=== PATIENT | female | born 1980 | race Caucasian/White ===

== ENCOUNTER 2022-01-26 07:08 | Day surgery (SDC) | payer OTHER ==
[2022-01-26] VITALS (7 sets, daily range): BP systolic 91–133; BP diastolic 45–75
[~2022-01-26] VITALS: Ht 154.9 cm; Wt 70.0 kg
--- NOTE | 2022-01-26 06:40 | NUR ---
Patient arrived to the ANR suite, identification and demographics confirmed. Patient to room 10, AAO, ambulatory, vitals obtained, ID/allergy/fall bands placed, changed into hospital gown, KASSANDRA hose, and non-slip socks. Procedure and timeline explained for treatment and discharge. All questions answered and the patient presents no concerns at this time.
--- NOTE | 2022-01-26 07:22 | NUR ---
Dr. Arauz telephoned with patient intake information including usage, dose, last dose/time taken and initial vital signs. Patient history and allergies reviewed with MD. Orders received for 10 mg PO Valium and 0.1 mg PO Clonidine now. Will reassess per protocol in 1.5 hours and update MD with assessment and vitals.
[2022-01-26 07:41] LABS: HEMATOCRIT 37.8 % (37.0-47.0); HEMOGLOBIN 12.5 g/dl (12.0-16.0); IMMATURE GRANULOCYTES 0.2 % (0.0-5.0); MEAN CELL VOLUME 92.6 fL CALC (80.0-100.0); MEAN CORPUSCULAR HGB 30.6 pG CALC (26.0-32.0); MEAN CORPUSCULAR HGB CONC 33.1 g/dL CAL (32.0-36.0); NEUT# 2.6 thou/uL (2.00-7.15); RED BLOOD COUNT 4.08 mill/uL (4.20-5.60); RED CELL DISTRI WIDTH 11.9 % (11.5-15.5)
--- NOTE | 2022-01-26 07:50 | NUR ---
Patient medicated at this time.
[2022-01-26 07:51] LABS: ALBUMIN 4.3 g/dL (3.2-5.0); ALKALINE PHOSPHATASE 71 u/l (38-126); ANION GAP 13 (6-22 (CALC)); BILIRUBIN, TOTAL 0.1 mg/dL (0.0-1.4); BUN 8 mg/dL (7-17); BUN/CREATININE RATIO 10 (12-20 (CALC)); CARBON DIOXIDE 28 mmol/l (22-30); CHLORIDE 101 mmol/l (95-108); CREATININE 0.8 mg/dL (0.5-1.0); GFR FOR AFR.AMER. > 60 ML/MIN (>=60 (CALC)); GFR OTHER RACES > 60 ML/MIN (>=60 (CALC)); POTASSIUM 4.3 mmol/l (3.5-5.1); SGOT/AST 26 u/l (14-36); SODIUM 138 mmol/l (137-146); TOTAL PROTEIN 7.1 g/dL (6.3-8.2)
[2022-01-26] MEDS ORDERED: LEVOTHYROXIN125 MCG PO (08:58)
--- NOTE | 2022-01-26 09:33 | NUR ---
Patient resting comfortably in bed. Easily aroused, maintains focus, and drifts back to sleep. No signs of active withdrawal or distress noted at this time. Continuous SPO2, sequential BPs initiated. IVF @ 250 mL/HR, room air, No additional orders requested at this time, LR bolus in progress.
--- NOTE | 2022-01-26 10:52 | NUR ---
Dr. Arauz telephoned with reassessment and new vital signs. Reviewed initial Valium and Clonidine dose with . Orders received for 10 mg PO Valium and ZERO mg PO Clonidine now.
--- NOTE | 2022-01-26 11:45 | NUR ---
Patient resting comfortably in bed. Easily aroused, maintains focus, and drifts back to sleep. No signs of active withdrawal or distress noted at this time. Continuous SPO2, rhythm, and respiratory monitoring in place. IVF @ 250 mL/HR, room air, VSS.
--- NOTE | 2022-01-26 12:27 | NUR ---
Induction Note Patient to ANR procedure room. Time out performed at 1227. Patient placed on monitors, Ugo hugger, bilateral wrist restraints applied for ET tube protection. Versed 5mg given IV push at 1228 Tourniquet applied to RIGHT arm Lidocaine 100mg given at 1229 IV push followed by Rocoronium 10mg at 1229 IV push and held for 45 seconds. Propofol bolus of 100 mg given at 1230 IV push. Succinylcholine 80mg given IV push at 1231. Smooth intubation at 1232 with 7.5 ETT @ 22L. Positive CO2. Positive Auscultation for air exchange. Patient placed on ventilator for spontaneous ventilation. Placed on Propofol IV drip at 1232. OG inserted at 1235. Positive air on auscultation. Positive gastric content. Stomach washed at this time.
--- NOTE | 2022-01-26 12:42 | NUR ---
OG close note Stomach washed at this time. Naltrexone 50 mg with Clonidine 0.2 mg via OG tube. OG will be clamped for 45 minutes.
[2022-01-26] MEDS ORDERED: NALTREXONE50 MG PO (13:24)
[2022-01-26] MEDS ORDERED: CLONIDINE0.1 MG PO (13:25)
[2022-01-26] MEDS ORDERED: KLONOPIN2 MG PO (13:26)
--- NOTE | 2022-01-26 13:27 | NUR ---
OG open note OG open at this time. Gastric content draining into drainage bag. OG to drain for 45 minutes. Propofol will be titrated down based on patient.
--- NOTE | 2022-01-26 14:20 | NUR ---
OG close note Stomach washed at this time. Naltrexone 50 mg with Clonidine ZERO mg via OG tube. OG will be clamped for 45 minutes.
--- NOTE | 2022-01-26 15:05 | NUR ---
OG close note Stomach washed at this time. Naltrexone 50 mg with Clonidine ZERO mg via OG tube. OG will be clamped for 45 minutes.
--- NOTE | 2022-01-26 15:50 | NUR ---
No OG close. Patient minimally reacting to treatment at this time. Vitals, total Naltrexone & Clonidine, current Propofol infusion rate, treatment duration, and patient assessment discussed with Dr. Arauz. No orders for medication administration.
--- NOTE | 2022-01-26 16:24 | NUR ---
Patient continues to minimally react to treatment at this time. Vitals, total Naltrexone & Clonidine, current Propofol infusion rate, treatment duration, and patient assessment discussed with Dr. Arauz. No orders for medication administration at this time. Will continue to allow time for therapy and treatment duration.
--- NOTE | 2022-01-26 17:55 | NUR ---
Patient transferred to room 281 in stable condition. Transfer VS: 108/62, HR 60, 20 RR, 96% on 2L. 2L via NC, LR @ 100ml/hr. Awaiting NOC ANR RN for transfer of care. This life underwriter at bedside 1:1 observation until transfer of care completed
--- NOTE | 2022-01-26 19:21 | NUR ---
PATIENT KEEPS KICKING LEGS OVER RAILS AND SITTING UP. TURNING SELF SIDE TO SIDE IN BED. REDIRECTED. PATIENT YELLS AT TIMES. DAY SHIFT NURSE WHO HAD PATIENT GAVE HER RECENT PRN MEDICATION. PATIENT HAD BM IN BRIEF. CHANGED BY NURSE AND SHIFT BOSS. AKIL CARE PROVIDED. BED REMAINS IN LOW POSITION. BED ALARM ACTIVE FOR SAFETY.
--- NOTE | 2022-01-26 23:18 | NUR ---
PATIENT REMAINS RESTING IN BED. ALERT BUT DROWSY. ABLE TO MAKE NEEDS KNOWN. USES BEDSIDE COMMODE. BUS COMPANY MANAGER ASSISTS WITH SUPERVISION. PATIENT IS DRINKING WATER AND TOLERATING WELL. PRN PHENERGAN GIVEN DUE TO MODERATE VOMITING. PATIENT IS TOLERATING WELL. BED REMAINS IN LOW POSITION. BED ALARM REMAINS ACTIVE.
[2022-01-27 03:55] VITALS: BP 126/66
--- NOTE | 2022-01-27 04:21 | NUR ---
PATIENT RESTING IN BED. ALERT WITH PERIODS OF CONFUSION. SITS UP IN BED AND LEANS FORWARD. REDIRECTED MULTIPLE TIMES. SOMETIMES PATIENT IGNORES. RECEIVED ALL 0400 MEDS WITHOUT DIFFICULTY. BED REMAINS IN LOW POSITION. BED IN LOW POSITION FOR SAFETY.
--- NOTE | 2022-01-27 04:25 | NUR ---
PATIENT REMAINS RESTING IN BED. ALERT WITH PERIODS OF CONFUSION. PATIENT SITS UP ALOT AND LEANS FORWARD. REDIRECTED MULTIPLE TIMES. RECEIVED ALL 0400 MEDS. BED REMAINS IN LOW POSITION. BED ALARM ACTIVE.
[2022-01-27 05:02] LABS: HEMATOCRIT 40.3 % (37.0-47.0); IMMATURE GRANULOCYTES 0.5 % (0.0-5.0); MEAN CORPUSCULAR HGB 30.9 pG CALC (26.0-32.0); MEAN CORPUSCULAR HGB CONC 34.7 g/dL CAL (32.0-36.0); NEUT# 17.05 thou/uL (2.00-7.15); RED BLOOD COUNT 4.53 mill/uL (4.20-5.60); RED CELL DISTRI WIDTH 11.7 % (11.5-15.5)
[2022-01-27 05:17] LABS: ALKALINE PHOSPHATASE 99 u/l (38-126); BUN 4 mg/dL (7-17); BUN/CREATININE RATIO 7 (12-20 (CALC)); CHLORIDE 97 mmol/l (95-108); CREATININE 0.6 mg/dL (0.5-1.0); GFR FOR AFR.AMER. > 60 ML/MIN (>=60 (CALC)); GFR OTHER RACES > 60 ML/MIN (>=60 (CALC)); MAGNESIUM 2.1 mg/dL (1.6-2.3); POTASSIUM 3.6 mmol/l (3.5-5.1); SGOT/AST 41 u/l (14-36); SODIUM 134 mmol/l (137-146); TOTAL PROTEIN 8.4 g/dL (6.3-8.2)
[2022-01-27 05:18] LABS: ANION GAP 20 (6-22 (CALC)); BILIRUBIN, TOTAL 0.4 mg/dL (0.0-1.4); CARBON DIOXIDE 21 mmol/l (22-30)
--- NOTE | 2022-01-27 07:00 | NUR ---
bedside report rec from Nigel Jackson RN.
[2022-01-27 07:16] VITALS: BP 110/59
--- NOTE | 2022-01-27 07:30 | NUR ---
pt sleeping in bed. no distress noted. call light within reach. bed alarm in place for safety.
--- NOTE | 2022-01-27 08:00 | NUR ---
pt sleeping in bed. no distress noted. pt drowsy. denied any needs. assessment completed. discussed poc. call light within reach, bed alarm in place for safety.
--- NOTE | 2022-01-27 10:53 | NUR ---
pt able to take PO medications with no difficulty. call light within reach and bed alarm in place for safety.
--- NOTE | 2022-01-27 11:15 | NUR ---
No IV in place, dislodged as pt was trying to get OOB. multiple attempts made from this feature writer and Liv Myers RN. Dr Arauz notified, order obtained for ALEJANDRO Jimenez. order to be sent to pharmacy.
--- NOTE | 2022-01-27 12:54 | NUR ---
orders obtained for phenergan suppository and potassium [address] Arauz. order written and faxed to pharmacy.
--- NOTE | 2022-01-27 13:30 | NUR ---
Phenergan suppositories requested from Pharmacy, pharmacy to bring to unit
--- NOTE | 2022-01-27 13:40 | NUR ---
pt up to shower second time after large bm movement. pt encouraged to try and ambulate and also to attempt eating. pt reporting some nausea. phenergan suppository to be administered when pt is back in bed. Claudia Torre CNA at bedside to assist with shower and to assist pt back to bed.
--- NOTE | 2022-01-27 14:19 | NUR ---
pt educated on suppository, pt agreeable as she is still having nausea. Phenergan suppository administered. potassium replacement to be given when pt able tolerate. call light within reach. bed alarm in place for safety.
--- NOTE | 2022-01-27 15:29 | NUR ---
PT ABLE TO TOLERATE PO POTASSIUM WITH APPLESAUCE, REQUESTED TO RINSE MOUTH AFTER. PT ABLE TO TAKE SIPS OF WATER AFTER TO SWALLOW MEDICATION. PT ENCOURAGED TO EAT, PT REQUESTING GRILLED CHEESE, DIETARY TO BE NOTIFIED. CALL LIGHT WITHIN REACH. BED ALARM IN PLACE FOR SAFETY
--- NOTE | 2022-01-27 15:40 | NUR ---
pt had emesis episode as staff entered room, approximately 150-200 cc. pt assisted with cleaning up. repositioned in bed. call light within reach and bed alarm in place for safety.
--- NOTE | 2022-01-27 15:49 | NUR ---
Spoke with Dr Arauz regarding pts emesis episode and inability to keep things down. Per MD pt to be monitored and encouraged to eat and monitor for the ability to keep food down. MD to be kept updated if no improvement central line may be needed.
--- NOTE | 2022-01-27 17:20 | NUR ---
Pt walked to restroom with the assistance of Stnaton Leblanc CNA, steady gait reported. pt took bite of requested grilled cheese sandwhich and walked into the restroom with it in hand, per Stanton Leblanc bite that was taken was found on the ground and other half missing not in garbage. when pt asked pt stated " i finished it "pt encouraged to eat other half" pt not interested. pt not cooperating with staff. bed alarm placed for safety.
--- NOTE | 2022-01-27 18:13 | NUR ---
Dr Arauz updated on pt status, pt agreeable to central line as she is a very hard stick with failed IV attempts. consent obtained
[2022-01-27 19:00] VITALS: BP 120/63
--- NOTE | 2022-01-27 19:11 | NUR ---
Triple lumen rt groin central line placed by Dr. Dee. ok to use per . Dr. Arauz notified. awaiting orders.
[2022-01-27 19:22] VITALS: BP 121/60
--- NOTE | 2022-01-27 19:40 | NUR ---
PT IN BED RESTLESS. NO S/S OD DISTRESS NOTED. DENIES PAIN OR DISCOMFORT ASSESMENT COMPLETED. PT HAS A TRIPLE LIMEN TO RIGHT GROIN. PATENT AND FLUSHES WELL. CALL LIGHT IN REACH AND BED IN LOWEST POSITION.
[2022-01-27 19:41] VITALS: BP 120/63
--- NOTE | 2022-01-27 22:25 | NUR ---
PATIENT WAS FOUND IN THE LOBBY WAITING FOR HER TO COME IN AND WANTED TO SIGN OUT AMA . PATIENT HAS TRIPLE LUMEN ON HER FEMORAL AREA. DR. AMES WAS NOTIFIED ON PATIENT SITUATION. ORDER NOTED.
--- NOTE | 2022-01-27 23:00 | NUR ---
PATIENT FOUND TAKING A SHOWER ON ANOTHER ROOM. ASSISTED PATIENT IN HER ROOM TRIPLE LUMEN ON HER RIGHT FEMORAL AREA SOAK WITH WATER. LINE FLUSHES WITHOUT DIFFICULTY.
--- NOTE | 2022-01-28 | NUR ---
PT IN BED RESTING WITH EYES CLOSED NO S/S OF DISTRESS NOTED. PT GOT UP EARLY AND SHOWER AND GOT HER CENTRAL LINE DRESSING WET, DRESSING CHANGE. CALL LIGHT IN REACH AND BED IN LOWEST POSITION.
--- NOTE | 2022-01-28 02:30 | NUR ---
IV FLUIDS STOP DUE TO RISK OF PT PULLING OUT MIDLINE.
--- NOTE | 2022-01-28 02:30 | NUR ---
PT CONTINUES TO GET IN SHOWER BY HERSELF, PT EDUCATED ON HER TRIPLE LUMEN IV SITE CARE, EDUCATIION UNSUCCESSFUL. PT STATES I FEEL BETTER WHEN I AM IN THE SHOWER. PT HAD A EPISODES OF VOMITING AND DIARRHEA MEDICATED PER JUN. PT ASSISTED BACK TO BED. CALL LIGHT IN REACH AND BED IN LOWEST POSITON AND BED ALARM ON.
[2022-01-28 04:00] VITALS: BP 134/63
--- NOTE | 2022-01-28 04:00 | NUR ---
PT IN BED WITH EYES CLOSED BREATHING EVEN AND UNLABORED. PT KEEPS TURING IN AROIND IN BED. PT VOMITED EARLY AND MEDICATED PER MAR. PT KEEPS TRYING TO GET TO THE SHOWER AND JUST SIT THERE, PT EDUCATED ON THE IMPORTACE OF KEEPING CENTRAL LINE DRY. PT STATED "I DON'T CARE" CALL LIGHT IN REACH AND BED IN LOWEST POSITION. BED ALARM ON AND WRITTER SITTING AT THE DOOR.
[2022-01-28 05:15] VITALS: BP 134/63
--- NOTE | 2022-01-28 08:30 | NUR ---
PATIENT REFUSED MORNING MEDS BECAUSE "IT WILL TAKE TO LONG WE HAVE TO LEAVE NOW". CENTRAL LINE IS REMOVED. D/C PAPERWORK DISCUSSED, MEDS GIVEN, PT SIGNED PAPERWORK. PT WHEELED DOWN IN W/C. STABLE. AT SIDE. PERSONAL BELONGINGS WENT DOWN WITH PATIENT. INFORMED SAMREEN ABOUT HER LEAVING, HE IS AWARE.
--- NOTE | 2022-01-28 09:10 | NUR ---
PT IN BED WITH EYES CLOSED BREATHING EVEN AND UNKLABORED. PT KEEP TURNING AROUND IN BED. PT VOMITED EARLYER. MEDICATED PER MAR. PT KEEPS TRYING TO GET TO THE SHOWER AND JUST SIT IN THERE. PT EDUCATED ON THE INPORTANCE OF KEEPING CENTRAL LINE DRY. PT STATED "I DON'T CARE" CALL LIGHT IN REACH AND BED IN LOWEST POSITION BED ALARM ON. ARTIFICIAL LOG MACHINE OPERATOR AT THE DOOR.
== END 2022-01-28 08:30 | disposition home or self-care (01) | DRG 897 ==
LOC: ANR 07:08 → ANR-I 07:08 → MS2 08:27 → ANR 01-28 08:30
PROVIDERS: ATTEND Anesthesiology
DX: F11.20 Opioid dependence, uncomplicated (principal)
CPT/HCPCS: J0131; J2354